=== PATIENT | male | born 1965 | race Caucasian/White ===

== ENCOUNTER 2016-11-16 10:12 | Day surgery (SDC) | payer OTHER ==
[~2016-11-16] VITALS: Ht 180.3 cm; Wt 92.5 kg
[2016-11-16 10:56] VITALS: BP 134/74
[2016-11-16 13:33] VITALS: BP 130/87
== END 2016-11-16 14:05 | disposition home or self-care (01) ==
LOC: SDC 10:12
DX: H33.021 Retinal detachment with multiple breaks, right eye (principal)
CPT/HCPCS: J0690; J2250; J3010; J3300